=== PATIENT | male | born 2005 | race Caucasian/White ===

== ENCOUNTER 2024-02-07 09:01 | Emergency (ER) | payer SELFPAY ==
[~2024-02-07] VITALS: Ht 180.3 cm; Wt 87.0 kg
[~2024-02-07 09:01] MED LIST: AMOX TR-K CLV1 EAC1 PO
--- OUTSIDE RECORDS SUMMARY | 2024-02-07 09:08 | XMS ---
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 EYamile VISIT COUNT (12 MO.) 2 [facility] TOTAL 2 NOTE: Visits indicate total known visits. ED/C VISIT TRACKING (12 MO.) 02/07/2024 09:02 [facility] TYPE: Emergency COMPLAINT: - DIZZY, SWEATING 01/22/2024 07:36 [facility] TYPE: Emergency COMPLAINT: - SORE THROAT, STUFFY NOSE DIAGNOSES: - Chronic sinusitis, unspecified - Cough, unspecified - Encounter for screening for COVID-19 INPATIENT VISIT TRACKING (12 MO.) No inpatient visits to display in this time frame [email or web address]
[2024-02-07] MEDS ORDERED: SODIUM CHLORIDE 0.9% 1,000 ML IV PRN (09:30)
[2024-02-07 09:40] LABS: HEMOGLOBIN 6.5 g/dL (12.0-18.0); MCHC 33.1 g/dl (30-36); MCV 100.7 fl (81-99)
[2024-02-07 09:43] LABS: HEMATOCRIT 19.7 % (35.0-50.0); MCH 33.3 (27-36); RBC 1.96 M/ul (4.3-5.7); RDW 15.9 (10.5-15.0)
[2024-02-07 09:58] LABS: ALBUMIN 3.4 g/dL (3.4-5.0); ALBUMIN/GLOBULIN RATIO 0.71 (1.1-2.4); ANION GAP 15.6 (7-21); BILIRUBIN, TOTAL 0.9 ng/dL (0.2-1.0); BUN/CREATININE RATIO 10.92 (6.0-28.6); CALCIUM 8.3 mg/dL (8.5-10.1); CREATININE, SERUM 1.19 mg/dL (0.70-1.30); POTASSIUM 3.6 mmol/L (3.5-5.1); PROTEIN, TOTAL 8.2 g/dL (6.4-8.2)
[2024-02-07 10:09] LABS: LYMPHOCYTES, MANUAL DIFF 98; NEUTROPHILS, MANUAL DIFF 2
[2024-02-07 10:13] LABS: PLATELET COUNT 21 K/uL (140-440)
[2024-02-07 10:24] LABS: HEMOGLOBIN 6.1 g/dL (12.0-18.0); MCHC 32.1 g/dl (30-36)
[2024-02-07 10:27] LABS: MCH 32.9 (27-36); MCV 102.3 fl (81-99); RBC 1.86 M/ul (4.3-5.7); RDW 16.1 (10.5-15.0)
[2024-02-07 10:38] LABS: LACTIC ACID, BLOOD 0.6 mmol/L (0.4-2.0)
[2024-02-07 10:46] LABS: PLATELET COUNT 20 K/uL (140-440)
[2024-02-07 10:52] LABS: LYMPHOCYTES, MANUAL DIFF 5; OTHER, MANUAL DIFF 95
[2024-02-07 10:53] LABS: BASOPHILS, MANUAL DIFF 0; EOSINOPHILS, MANUAL DIFF 0; MONOCYTES, MANUAL DIFF 0; NEUTROPHILS, MANUAL DIFF 0
[2024-02-07 10:58] LABS: ABO A; ANTIBODY SCREEN NEGATIVE; RH POSITIVE
[2024-02-07 13:22] LABS: INFLUENZA B NAA NEGATIVE (NEGATIVE); RESPIRATORY SYNCYTIAL VIR NAA NEGATIVE (NEGATIVE)
[2024-02-07 17:59] VITALS: BP 119/66
--- NOTE | 2024-02-07 22:43 | EKG ---
[facility] [address] [facility] [place] [address] Signed Normal sinus rhythm Normal ECG No previous ECGs available Confirmed by Salvador Pugh MD () on 02/07/2024 10:43:34 PM Electronically Signed By: SALVADOR PUGH MD 02/07/24 2243 PATIENT NAME: SAW HIGGINS Electrocardiogram DATE OF : [birth year] PHYSICIAN: SALVADOR PUGH MD REPORT #: [id number] REPORT IS CONFIDENTIAL AND NOT TO BE RELEASED WITHOUT AUTHORIZATION
== END 2024-02-07 17:59 | disposition designated cancer center or children's hospital (05) ==
LOC: ED 09:01
PROVIDERS: Emergency Medicine
DX: C92.00 Acute myeloblastic leukemia, not having achieved remission (principal)
CPT/HCPCS: 36415; 71260; 74177; 80053; 83605; 83615; 84550; 85025; 86308; 86850; 86900; 86901; 87502; 93005; 93010; 99285-25; Q9967; U0002